=== PATIENT | male | born 1960 | race Caucasian/White ===

== ENCOUNTER 2016-09-17 21:57 | Emergency (ER) | payer OTHER ==
[~2016-09-17] VITALS: Ht 188 cm; Wt 118.2 kg
[~2016-09-17 21:57] MED LIST: ASPIRIN EC81 MG PO; BENADRYL 50MG C50 MG PO; CLONIDINE0.1 MG PO; DOCUSATE CAL240 MG PO; FLEXERIL5 MG PO; GABAPENTIN300 MG PO; LIPITOR10 M1 PO; LISINOPRIL20 MG PO; LORCET HD 10-321 TAB PO; LOVASTATIN10 M1 PO; MS CONTIN ER15 MG PO; NAPROXEN375 MG PO; PERCOCET1 TA2 PO; PRILOSEC20 MG PO; ULTRAM50 M1 PO
[2016-09-18] MEDS ORDERED: MORPHINE SUL30 M3 PO (00:25)
[2016-09-18] MEDS ORDERED: [UNRECOGNIZED DRUG - OTHER] PO (00:28)
[2016-09-18] MEDS ORDERED: KEFLEX500 MG PO (01:30)
[2016-09-18] MEDS ORDERED: TRAMADOL HYDROC50 MG PO (01:30)
[2016-09-18 01:35] VITALS: BP 151/91
== END 2016-09-18 01:40 | disposition home or self-care (01) | DRG 605 ==
LOC: ED 21:57
DX: S90.31XA Contusion of right foot, initial encounter (principal); S90.811A Abrasion, right foot, initial encounter; W56.52XA Struck by other fish, initial encounter; Y93.89 Activity, other specified; Y92.828 Other wilderness area as the place of occurrence of the external cause

== ENCOUNTER 2016-11-27 15:07 | Emergency (ER) | payer OTHER ==
[~2016-11-27] VITALS: Ht 188 cm; Wt 118.0 kg
[~2016-11-27 15:07] MED LIST changes: -ASPIRIN EC81 MG PO; +BAYER ASPIRIN E81 MG PO; +KEFLEX500 MG PO; +MORPHINE SUL30 M3 PO; +TRAMADOL HYDROC50 MG PO; +[UNRECOGNIZED DRUG - OTHER] PO
[2016-11-27] MEDS ORDERED: LORTAB 10-325 M1 TAB PO (15:49)
[2016-11-27] MEDS ORDERED: OXYCONTIN10 MG PO (16:01)
[2016-11-27] MEDS ORDERED: ATORVASTATIN CA10 MG PO (16:02)
[2016-11-27] MEDS ORDERED: RANITIDINE150 M1 PO (16:02)
[2016-11-27 16:10] VITALS: BP 149/87
== END 2016-11-27 16:10 | disposition home or self-care (01) | DRG 156 ==
LOC: ED 15:07
PROC: 3E1B38Z Irrigation of Ear using Irrigating Substance, Percutaneous Approach (ICD-10-PCS; principal; 2016-11-27)
DX: H61.21 Impacted cerumen, right ear (principal); H92.01 Otalgia, right ear

== ENCOUNTER 2017-04-14 08:25 | Emergency (ER) | payer OTHER ==
[~2017-04-14] VITALS: Ht 188 cm; Wt 100.0 kg
[~2017-04-14 08:25] MED LIST changes: +ATORVASTATIN CA10 MG PO; +LORTAB 10-325 M1 TAB PO; +OXYCONTIN10 MG PO; +RANITIDINE150 M1 PO
[2017-04-14] MEDS ORDERED: NAPROSYN500 MG PO (09:31)
[2017-04-14] MEDS ORDERED: FLEXERIL PO (09:31)
[2017-04-14 09:48] VITALS: BP 136/88
== END 2017-04-14 10:03 | disposition home or self-care (01) | DRG 552 ==
LOC: ED 08:25
DX: S16.1XXA Strain of muscle, fascia and tendon at neck level, initial encounter (principal); X58.XXXA Exposure to other specified factors, initial encounter

== ENCOUNTER 2017-04-28 20:25 | Observation (INO) | payer OTHER ==
[~2017-04-28] VITALS: Ht 188 cm; Wt 111.0 kg
[~2017-04-28 20:25] MED LIST changes: +FLEXERIL PO; +NAPROSYN500 MG PO
[2017-04-28 20:58] LABS: HEMATOCRIT 48.7 % (39.0-50.0); HEMOGLOBIN 16.4 g/dl (14.0-18.0); IMMATURE GRANULOCYTES 0.7 % (0.0-1.0); MEAN CELL VOLUME 89.9 fL CALC (80.0-100.0); MEAN CORPUSCULAR HGB 30.3 pG CALC (26.0-32.0); MEAN CORPUSCULAR HGB CONC 33.7 g/L CALC (32.0-36.0); NEUT# 6.72 thou/uL (1.82-7.42); RED BLOOD COUNT 5.42 mill/uL (4.70-6.10); RED CELL DISTRI WIDTH 13.5 % (11.5-15.5)
[2017-04-28 21:09] LABS: ALBUMIN 4.4 g/dL (3.2-5.0); ALKALINE PHOSPHATASE 95 u/l (38-126); AMYLASE 85 u/l (30-110); ANION GAP 17 (6-22 (CALC)); BILIRUBIN, TOTAL 0.3 mg/dL (0.0-1.4); BUN 13 mg/dL (9-20); BUN/CREATININE RATIO 13 (12-20 (CALC)); CALCIUM 10.3 mg/dL (8.4-10.2); CARBON DIOXIDE 25 mmol/l (22-30); CHLORIDE 106 mmol/l (95-108); GFR > 60 ML/MIN (>=60 (CALC)); GFR FOR AFR.AMER. > 60 ML/MIN (>=60 (CALC)); GLUCOSE 112 mg/dL (75-110); LIPASE 181 u/l (23-300); POTASSIUM 4.1 mmol/l (3.5-5.1); SGOT/AST 28 u/l (17-59); SGPT/ALT 42 u/l (21-72); SODIUM 143 mmol/l (137-146); TOTAL PROTEIN 7.3 g/dL (6.3-8.2)
[2017-04-28 21:17] LABS: MYOGLOBIN 29 ng/mL (0 - 121)
[2017-04-28 22:45] VITALS: BP 152/80
[2017-04-28 23:06] LABS: URINE BILIRUBIN - DIPSTICK NEGATIVE (NEGATIVE); URINE BLOOD DIPSTICK MODERATE (NEGATIVE); URINE COLOR YELLOW; URINE GLUCOSE - DIPSTICK NEGATIVE (NEGATIVE); URINE KETONE NEGATIVE (NEGATIVE); URINE LEUK ESTERASE NEGATIVE (NEGATIVE); URINE NITRITE - DIPSTICK NEGATIVE (Negative); URINE PH 5.5 (4.5-8.0); URINE PROTEIN - DIPSTICK NEGATIVE (NEG-TRACE); URINE SPECIFIC GRAVITY >=1.030; URINE UROBILINOGEN - DIPSTICK 0.2 E.U./dL (0.2)
[2017-04-28 23:20] LABS: URINE CLARITY CLEAR
[2017-04-28 23:27] LABS: URINE BACTERIA MANY hpf; URINE SQUAMOUS EPITHELIAL CELL FEW EPI/hpf (0-FEW)
[2017-04-29] VITALS: BP 146/71
[2017-04-29 04:25] VITALS: BP 137/82
[2017-04-29 07:42] LABS: CHOLESTEROL HDL RATIO 8.2 (<4.4 (CALC))
[2017-04-29 08:20] VITALS: BP 142/79
[2017-04-29 15:35] VITALS: BP 140/76
[2017-04-29 15:41] VITALS: BP 140/76
== END 2017-04-29 15:51 | disposition home or self-care (01) | DRG 313 ==
LOC: ED 20:25 → ED-I 21:20 → ED 21:51 → MS2 21:52
PROVIDERS: Emergency Medicine; Internal Medicine; ADMIT Internal Medicine; ATTEND Internal Medicine
DX: R07.89 Other chest pain (principal); E78.5 Hyperlipidemia, unspecified; I16.0 Hypertensive urgency; I10 Essential (primary) hypertension; G89.4 Chronic pain syndrome; M19.90 Unspecified osteoarthritis, unspecified site; M48.00 Spinal stenosis, site unspecified; Z98.1 Arthrodesis status; Z86.73 Personal history of transient ischemic attack (TIA), and cerebral infarction without residual deficits; Z91.14 Patient's other noncompliance with medication regimen; Z87.891 Personal history of nicotine dependence
CPT/HCPCS: G0378